=== PATIENT | female | born 1970 | race Two or more races ===

== ENCOUNTER 2016-07-08 10:26 | Emergency (ER) | payer OTHER, BC ==
[2016-07-08 10:31] VITALS: BMI 39.2
--- NOTE | 2016-07-08 10:58 | PDOC ---
History of Present Illness - General History Source: Patient Exam Limitations: No Limitations - History of Present Illness Initial Comments: 07/08/16 11:05 The patient is a 46 year old female, with a significant past medical history of anemia, asthma, pre-diabetes, hypertension, uterine fibroids, and a pituitary tumor, who presents to the emergency department complaining of abdominal pain for approximately 4 days. The patient reports she is currently on her menstrual period. She states her pain is localized to the left side of her abdomen, and the pain is different from her period cramps. Patient states her pain is constant. She reports her pain is exacerbated when walking or standing, but mildly alleviated when lying down. She reports heavy bleeding since the onset of her period. She denies any flank pain, dysuria, hematuria, frequency, or urgency. She denies any nausea, vomiting, diarrhea, or constipation. She denies any fever, chills, cough, headache or dizziness. Allergies: Ibuprofen(swelling) Past Surgical History: None reported. Social History: Non-smoker. Denies alcohol or drug use. PCP: Dr. Rodríguez <Minh Hernandez - Last Filed: 07/08/16 13:29> <Inna Blood - Last Filed: 07/08/16 14:12> - General Chief Complaint: Pain Stated Complaint: ABD PAIN Time Seen by Provider: 07/08/16 10:37 Past History <Minh Hernandez - Last Filed: 07/08/16 13:29> - Past Medical History Anemia: Yes Asthma: Yes Cancer: No Cardiac Disorders: No CVA: No COPD: No CHF: No Dementia: No Diabetes: Yes GI Disorders: No Disorders: No HTN: Yes Hypercholesterolemia: No Liver Disease: No Suicide Attempt (Hx): No Seizures: No Thyroid Disease: No Other medical history: UTERINE FIBRIODS - Surgical History Abdominal Surgery: No Appendectomy: No Cardiac Surgery: No Cholecystectomy: No Lung Surgery: No Neurologic Surgery: No Orthopedic Surgery: No - Immunization History Td Vaccination: Yes TDAP Vaccination: Yes Immunization Up to Date: Yes - Psycho/Social/Smoking Cessation Hx Anxiety: No Suicidal Ideation: No Smoking Status: No Smoking History: Never smoked Have you smoked in the past 12 months: No Number of Cigarettes Smoked Daily: 0 Hx Alcohol Use: No Drug/Substance Use Hx: No Substance Use Type: None Hx Substance Use Treatment: No <Inna Blood - Last Filed: 07/08/16 14:12> - Past Medical History Allergies/Adverse Reactions: Allergies Allergy/AdvReac Type Severity Reaction Status Date / Time ibuprofen [From Advil] Allergy Swelling Verified 07/08/16 10:31 HOT DOGS Allergy Rash Uncoded 07/08/16 10:31 SEASONAL Allergy Itching Uncoded 07/08/16 10:31 Home Medications: Ambulatory Orders Amlodipine Besylate [Norvasc] 5 mg PO DAILY 07/17/11 Cabergoline [Dostinex -] 0.5 mg PO UTDICT 07/17/11 Review of Systems - Review of Systems Able to Perform ROS?: Yes Comments:: 07/08/16 11:07 GENERAL/CONSTITUTIONAL: No fever or chills. No weakness. HEAD, EYES, EARS, NOSE AND THROAT: No change in vision. No ear pain or discharge. No sore throat. CARDIOVASCULAR: No chest pain or shortness of breath. RESPIRATORY: No cough, wheezing, or hemoptysis. GASTROINTESTINAL: Yes: +left-sided abdominal pain. No nausea, vomiting, diarrhea or constipation. GENITOURINARY: Yes: +heavy bleeding. No dysuria, frequency, or change in urination. MUSCULOSKELETAL: No joint or muscle swelling or pain. No neck or back pain. SKIN: No rash NEUROLOGIC: No headache, vertigo, loss of consciousness, or change in strength/ sensation. ENDOCRINE: No increased thirst. No abnormal weight change. HEMATOLOGIC/LYMPHATIC: No easy bleeding or history of blood clots. ALLERGIC/IMMUNOLOGIC: No hives or skin allergy. <Minh Hernandez - Last Filed: 07/08/16 13:29> *Physical Exam - Vital Signs Last Vital Signs Temp Pulse Resp BP Pulse Ox 98.3 F 88 20 145/89 97 07/08/16 10:28 07/08/16 10:28 07/08/16 10:28 07/08/16 10:28 07/08/16 10:28 - Physical Exam Comments: 07/08/16 11:12 GENERAL: Awake, alert, and fully oriented, in no acute distress HEAD: No signs of trauma EYES: PERRLA, EOMI, sclera anicteric, conjunctiva clear ENT: Auricles normal inspection, hearing grossly normal, nares patent, oropharynx clear without exudates. Moist mucosa NECK: Normal ROM, supple, no lymphadenopathy, JVD, or masses LUNGS: Breath sounds equal, clear to auscultation bilaterally. No wheezes, and no crackles HEART: Regular rate and rhythm, normal S1 and S2, no murmurs, rubs or gallops ABDOMEN: Tenderness to palpation to the LLQ and LUQ, but no guarding or rebound. Soft, normoactive bowel sounds. No masses EXTREMITIES: Normal range of motion, no edema. No clubbing or cyanosis. No cords, erythema, or tenderness NEUROLOGICAL: Cranial nerves II through XII grossly intact. Normal speech, normal gait SKIN: Warm, Dry, normal turgor, no rashes or lesions noted. <Minh Hernandez - Last Filed: 07/08/16 13:29> - Vital Signs Last Vital Signs Temp Pulse Resp BP Pulse Ox 98.3 F 88 20 145/89 97 07/08/16 10:28 07/08/16 10:28 07/08/16 10:28 07/08/16 10:28 07/08/16 10:28 <Inna Blood - Last Filed: 07/08/16 14:12> ED Treatment Course - LABORATORY CBC & Chemistry Diagram: 07/08/16 11:28 07/08/16 11:28 - RADIOLOGY Radiograph Interpretation: 07/08/16 13:12 EXAM: CT Abdomen and Pelvis INTERPRETED BY: Dr. Fulton REVIEWED BY: Dr. Blood IMPRESSION: Fibroid uterus, otherwise normal CT scan of the abdomen and pelvis with no evidence of colitis, diverticulitis or acute pathology. <Minh Hernandez - Last Filed: 07/08/16 13:29> - LABORATORY CBC & Chemistry Diagram: 07/08/16 11:28 07/08/16 11:28 <Inna Blood - Last Filed: 07/08/16 14:12> Medical Decision Making - Medical Decision Making 07/08/16 14:01 Pt states she has had relief with IV tylenol (she is allergic to NSAIDs and did not want to receive anything with sedative side effects). No acute findings on CT aside from fibroids, which are known. Will f/u with process development associate. <Inna Blood - Last Filed: 07/08/16 14:12> *DC/Admit/Observation/Transfer - Attestations Scribe Attestion: 07/08/16 11:20 Documentation prepared by Minh Hernandez, acting as clinical medical transcriptionist for Inna Blood MD. <Minh Hernandez - Last Filed: 07/08/16 13:29> - Discharge Dispostion Admit: No <Inna Blood - Last Filed: 07/08/16 14:12> Diagnosis at time of Disposition: Fibroids Qualifiers: Uterine leiomyoma location: unspecified location Qualified Code(s): D25.9 - Leiomyoma of uterus, unspecified - Discharge Dispostion Disposition: HOME Condition at time of disposition: Stable - Referrals Referrals: Ambrosio Rodríguez MD [Primary Care Provider] - - Patient Instructions Printed Discharge Instructions: DI for Uterine Fibroids
[2016-07-08] MEDS ORDERED: ACETAMINOPHEN 1000 MG/100 ML VIAL (NON FORMULARY) IVPB ONE (10:59)
[2016-07-08] MEDS ORDERED: SODIUM CHLORIDE 1,000 ML IV STA (10:59)
[2016-07-08] MEDS ORDERED: ACETAMINOPHEN INJECTION 100 ML IVPB ONE (11:07)
[2016-07-08 11:26] LABS: URINE APPEARANCE CLEAR; URINE BILIRUBIN NEGATIVE (NEGATIVE); URINE COLOR RED; URINE GLUCOSE (UA) NEGATIVE (NEGATIVE); URINE KETONE NEGATIVE (NEGATIVE); URINE NITRITE NEGATIVE (NEGATIVE); URINE UROBILINOGEN NEGATIVE E.U./dl (0.2-1.0)
[2016-07-08 11:45] LABS: URINE BLOOD 3+ (NEGATIVE); URINE LEUK ESTERASE TRACE (NEGATIVE); URINE PROTEIN 2+ (NEGATIVE)
[2016-07-08 11:47] LABS: BASOPHIL 1.3 % (0-2.0); MCH 28.1 pg (25.7-33.7); MCHC 32.4 g/dl (32.0-36.0); MEAN CELL VOLUME 86.7 fl (80-96); MEAN PLT VOLUME 7.6 fl (7.5-11.1); NEUTROPHILS 51.2 % (42.8-82.8); PLATELET COUNT 320 K/MM3 (134-434); RDW 15.5 % (11.6-15.6); WHITE BLOOD COUNT 3.6 K/mm3 (4.0-10.0)
[2016-07-08 11:56] LABS: URINE RBC 1370 /hpf (0-3); URINE WBC 43 /hpf (3-5)
[2016-07-08 12:01] LABS: ALBUMIN 3.8 g/dl (3.4-5.0); ALK PHOS 80 U/L (45-117); ANION GAP 8 (8-16); BILIRUBIN,TOTAL 0.3 mg/dL (0.2-1.0); CALCIUM 9.4 mg/dL (8.5-10.1); CO2 29 mmol/L (21-32); COCKROFT - GAULT 149.6425; CREATININE 0.8 mg/dL (0.55-1.02); GLUCOSE,RANDOM 80 mg/dL (74-106); SGOT/AST 16 U/L (15-37); SGPT/ALT 22 U/L (12-78); TOT PROT 7.5 g/dl (6.4-8.2)
[2016-07-08 14:29] VITALS: BP 107/54; PULSE 58; TEMP 98.2
== END 2016-07-08 14:29 | disposition home or self-care (01) ==
LOC: JER 10:26
DX: D25.9 Leiomyoma of uterus, unspecified (principal); J45.909 Unspecified asthma, uncomplicated; E11.9 Type 2 diabetes mellitus without complications; I10 Essential (primary) hypertension
CPT/HCPCS: 36415; 74177-TC; 80053; 81003; 81015; 83690; 84703; 85025; 87086; 99283-25

== ENCOUNTER 2023-05-24 10:26 | Emergency (ER) | payer OTHER ==
[2023-05-24 10:30] VITALS: BP 168/84; PULSE 88; RESP 18; TEMP 98.1; BMI 47.4
[2023-05-24] MEDS ORDERED: ACETAMINOPHEN 500 MG TABLET (FP) ONE (11:43)
[2023-05-24] MEDS: ACETAMINOPHEN 500 MG TABLET (FP) PO ONE (11:45)
== END 2023-05-24 11:57 | disposition home or self-care (01) ==
LOC: JERFT 10:26
DX: S93.402A Sprain of unspecified ligament of left ankle, initial encounter (principal); W50.1XXA Accidental kick by another person, initial encounter
CPT/HCPCS: 73610-TC-LT-FY; 99283-25